=== PATIENT | male | born 1960 | race Caucasian/White ===

== ENCOUNTER 2023-03-05 08:55 | Emergency (ER) | payer OTHER ==
[~2023-03-05] VITALS: Ht 198.1 cm; Wt 108.9 kg
--- NOTE | 2023-03-05 08:59 | NUR ---
Patient to ER bed 03 to gown for evaluation. Side rails up.
[2023-03-05 09:04] VITALS: BP_SYST 151; PULSE 83; RESP 18; TEMP 98.3; O2SAT 96
--- NOTE | 2023-03-05 09:20 | NUR ---
Dr Awan evaluating patient at bedside
--- NOTE | 2023-03-05 09:28 | NUR ---
Pt C/O right wrist/hand pain Fell from scooter VSS Able to make needs known NAD at this time Will continue to monitor
[2023-03-05] MEDS ORDERED: NAPR-688 PO (10:10)
[2023-03-05 10:23] VITALS: BP_SYST 151; PULSE 83; RESP 18; TEMP 98.3; O2SAT 96
--- NOTE | 2023-03-05 10:23 | NUR ---
Patient given written and verbal discharge instructions and verbalizes understanding. ER MD discussed with patient the results and treatment provided. Patient in stable condition. ID arm band removed. Rx of Naproxen given. Patient educated on pain management and to follow up with PMD. Pain Scale 2/10. Opportunity for questions provided and answered. Medication side effect fact sheet provided.
== END 2023-03-05 10:23 | disposition home or self-care (01) ==
LOC: SED 08:55
DX: S63.92XA Sprain of unspecified part of left wrist and hand, initial encounter (principal); Z91.041 Radiographic dye allergy status; Z79.899 Other long term (current) drug therapy; W19.XXXA Unspecified fall, initial encounter; Y93.89 Activity, other specified; Y92.89 Other specified places as the place of occurrence of the external cause; Y99.8 Other external cause status
CPT/HCPCS: 99284